=== PATIENT | male | born 1975 | race Caucasian/White ===

== ENCOUNTER 2017-02-07 20:35 | Emergency (ER) | payer OTHER ==
[~2017-02-07] VITALS: Ht 182.9 cm; Wt 150.0 kg
[~2017-02-07 20:35] MED LIST: NORC7.5T PO
[2017-02-07 20:37] VITALS: BP 139/77; PULSE 83; RESP 16; TEMP 99; O2SAT 98
[2017-02-07] MEDS ORDERED: LIDOCAINE HCL 1% 50 ML VIAL INFIL ONE (21:15)
[2017-02-07] MEDS ORDERED: TETANUS/DIPHTHERIA TOXOID ADULT 0.5 ML VIAL IM ONE (21:15)
[2017-02-07] MEDS ORDERED: AMPICILLIN-SULBACTAM INJ 3 GM in SODIUM CHLORIDE 0.9% INJ 100 ML IV ONE (21:15)
[2017-02-07] MEDS ORDERED: HYDR-3533 PO (21:17)
[2017-02-07] MEDS ORDERED: AUGM875T3 PO (21:17)
--- NOTE | 2017-02-07 21:58 | RADRPT ---
EXAM DATE/TIME: 02/07/2017 21:55 [place] COMPARISON: No previous studies available for comparison. INDICATIONS : Pain post dog bite. MEDICAL HISTORY : None. SURGICAL HISTORY : None. ENCOUNTER: Initial ACUITY: 1 day PAIN SCORE: 4/10 LOCATION: Left Hand. FINDINGS: Bones of the left hand are intact and normally aligned. There is soft tissue swelling, especially amina und the fourth and fifth metacarpals. A repeat foreign body. CONCLUSION: Nonspecific soft tissue swelling. No fracture or radiopaque foreign body. Ryder Jhaveri MD on February 07, 2017 at 21:55 Board Certified Radiologist. This report was verified electronically.
--- NOTE | 2017-02-07 22:14 | PD ---
HPI Chief Complaint: Bite or Sting Time Seen by Provider: 22:13 Travel History International Travel<30 days: No Contact w/Intl Traveler<30days: No Traveled to known affect area: No History of Present Illness HPI 41-year-old [id number] white male presents to the department for evaluation of a dog bite which occurred a few days ago. He states that [place] when the dog became aggressive and bit him in his left hand. This occurred approximately 2 days ago. It has become increasing tender, red and swollen. A small amount of drainage. He denies any numbness, tingling or focal weakness. He has not had a tetanus shot over 5 years. Patient denies diabetes. Pain is moderate. Worse with movement. No alleviating factors. PFSH Past Medical History Narrative Medical GERD Arthritis: No Asthma: No Autoimmune Disease: No Blood Disorders: No Anxiety: No Depression: No Heart Rhythm Problems: No Cancer: No Cardiovascular Problems: No High Cholesterol: No Chemotherapy: No Chest Pain: No Congestive Heart Failure: No COPD: No Cerebrovascular Accident: No Diabetes: No Diminished Hearing: No Endocrine: No Gastrointestinal Disorders: No GERD: No Glaucoma: No Genitourinary: No Headaches: No Hepatitis: No Hiatal Hernia: No Heparin Induced Thrombocytopen: No Hypertension: No Immune Disorder: No Implanted Vascular Access Dvce: No Kidney Stones: No Medical other: No Musculoskeletal: No Neurologic: No Psychiatric: No Reproductive: No Respiratory: No Immunizations Current: Yes Migraines: No Myocardial Infarction: No Radiation Therapy: No Renal Failure: No Seizures: No Sickle Cell Disease: No Sleep Apnea: No Thyroid Disease: No Ulcer: No Tetanus Vaccination: > 5 Years Influenza Vaccination: Yes Past Surgical History Narrative Surgical Herniorrhaphy Appendectomy Abdominal Surgery: Yes (APPY, UMB. & ING. HERNIA REPS.) AICD: No Appendectomy: Yes Arteriovenous Shunt: No Cardiac Surgery: No Cholecystectomy: No Ear Surgery: No Endocrine Surgery: No Eye Surgery: No Genitourinary Surgery: No Gynecologic Surgery: No Insulin Pump: No Joint Replacement: No Neurologic Surgery: No Oral Surgery: Yes (WISDOM TEETH EXTRACT.) Pacemaker: No Thoracic Surgery: No Other Surgery: Yes (SEVERAL HERNIA REPAIRS) Social History Alcohol Use: No Tobacco Use: No Substance Use: No Allergies-Medications (Allergen,Severity, Reaction): Coded Allergies: No Known Allergies (Verified , 02/07/17) Reported Meds & Prescriptions Reported Meds & Active Scripts Active Lortab (Hydrocodone-Acetaminophen) 5-325 Mg Tab 1-2 Tab PO Q6H PRN Augmentin (Amoxicillin-Clavulanate) 875-125 Mg Tab 1 Tab PO TID Reported [place] 7.5-325 mg (Hydrocodone-Acetaminophen 7.5-325 mg) 7.5 Mg/325 Mg Tab 2 Tab PO Q4H PRN Review of Systems Except as stated in HPI: all other systems reviewed are Neg Physical Exam Narrative GENERAL: This is a well-nourished, well-developed patient, in no apparent distress. SKIN: No rashes, ecchymoses or lesions. Warm and dry. HEAD: Atraumatic. Normocephalic. EYES: PERRL, EOMI, no discharge or injection. No scleral icterus. EARS: Clear NOSE: Nasal turbinates appear normal. THROAT: Mucosa pink and moist. Airway patent. NECK: Trachea midline. supple, moves head freely. LUNGS: Clear to auscultation. CV: Regular in rhythm. ABDOMEN: Soft nontender. EXT: No clubbing cyanosis. Examination the left hand reveals mild swelling from the wrist down into the hand. He has some superficial scratches on the dorsal surface of the distal everton. Patient has 2 puncture wounds. One involving the dorsal surface of the proximal everton centrally as well as a puncture wound over the proximal hand at the hypothenar eminence. These do not appear to enter the joint surfaces. There is no tendon or nerve injury. He is able to extend and flex his fingers freely. He is able to extend and flex his wrist freely. There is a small amount of pus draining from both puncture wounds. Data Data Last Documented VS Vital Signs Date Time Temp Pulse Resp B/P (MAP) Pulse Ox O2 Delivery O2 Flow Rate FiO2 02/07/17 20:37 99.0 83 16 139/77 (97) 98 Room Air Orders Orders Wound Culture And Gram Stain (02/07/17 21:12) Ampicillin-Sulbactam Inj (Unasyn Inj) (02/07/17 21:15) Tetanus/Diphtheria Tox Adult (Tetanus/Di (02/07/17 21:15) Lidocaine 1% Inj (50 Ml) (Xylocaine 1% I (02/07/17 21:15) Hand, Complete (Ojl6dur) (02/07/17 21:12) Iv Access Insert/Monitor (02/07/17 21:14) MDM Medical Decision Making Medical Screen Exam Complete: Yes Emergency Medical Condition: Yes Medical Record Reviewed: Yes Interpretation(s) Last 24 hours Impressions Hand X-Ray 02/07/172111 Signed Impressions: Service Date/Time: Tuesday, February 07, 2017 21:55 - CONCLUSION: Nonspecific soft tissue swelling. No fracture or radiopaque foreign body. Ryder Jhaveri MD Differential Diagnosis MDM: High Differential diagnoses: Abscess, folliculitis, cellulitis, lymphangitis, abrasion, contact dermatitis, dog bite Narrative Course IV access is obtained. Patient's given 3 g of Unasyn IV. Tetanus in position updated. X-rays of the hand are negative for foreign body. The wounds have been opened, and irrigated. Cultures obtained. This is a dog bite left hand-infected Procedures Procedure Narrative I&D dog bites of the left hand.: There is a wound on the dorsal as well as a volar surface of the proximal everton. After the risks and benefits were discussed the following procedure was performed. The skin is prepped and draped in the usual sterile fashion using Betadine. The puncture wounds are anesthetized with 1% lidocaine. After adequate anesthesia, an 11 blade scalpel is used to make a 1 centimeter central incision. Perulant material is expressed and cultured. Loculations are broken up using curved Roseline forceps. The wound is cleansed deeply using dilute Betadine and peroxide on Q-tips. The wound is packed open using iodoform gauze. A clean dressing is applied. The patient tolerated the procedure well. There was no complications. Follow-up instructions were given to the patient. Diagnosis Primary Impression: Dog bite of left hand with infection Qualified Codes: S61.452A - Open bite of left hand, initial encounter; L08.9 - Local infection of the skin and subcutaneous tissue, unspecified; W54.0XXA - Bitten by dog, initial encounter Patient Instructions: General Instructions Departure Forms: Tests/Procedures, Work Release Special Instructions: No work 3 days. Additional Instructions: Rest. Elevation. keep clean and dry. remove the packing in two days. Daily wound care with soap, water and Neosporin. Three Advil every 6 hours. Augmentin, and Lortab. Follow-up with a primary care doctor in 2 days. Return to the ER for any problems. Med/Other Pt SpecificInfo: Prescription(s) given Scripts Hydrocodone-Acetaminophen (Lortab) 5-325 Mg Tab 1-2 TAB PO Q6H Y for PAIN, #20 TAB 0 Refills Prov: Valencia Guerra DO 02/07/17 Amoxicillin-Clavulanate (Augmentin) 875-125 Mg Tab 1 TAB PO TID for Infection, #30 TAB 0 Refills Prov: Valencia Guerra DO 02/07/17 Disposition: 01 DISCHARGE HOME Condition: Stable Turner Bowden Feb 07, 2017 22:14
== END 2017-02-07 23:06 | disposition home or self-care (01) ==
LOC: EDTENT 20:35
DX: S61.452A Open bite of left hand, initial encounter (principal); L08.9 Local infection of the skin and subcutaneous tissue, unspecified; B96.89 Other specified bacterial agents as the cause of diseases classified elsewhere; W54.0XXA Bitten by dog, initial encounter; X37.0XXA Hurricane, initial encounter; Y93.K9 Activity, other involving animal care; Z23 Encounter for immunization
CPT/HCPCS: 10061; 73130; 87070; 90471; 90714; 96374; 99284; J0295; 87205